=== PATIENT | male | born 1930 | race Caucasian/White ===

== ENCOUNTER → 2016-07-26 | Outpatient (REF) | payer MEDICARE, BC ==
[~2016-07-26] MED LIST: ASPI1TAB24 PO; B COTAB PO; BACITAB3 PO; CALC25TA PO; CARD120C3 PO; D 101TAB PO; DILT120C50 PO; DOCU10CA PO; FINA5TAB2 PO; FLOM5CAP PO; LIPI20TA PO; LUNE3TAB48 PO; METO25TA74 PO; MILKSUS PO; MIRA3350 PO; MULTTAB63 PO; PROTPAK PO; REST15CA PO; SENO8.6T2 PO; TYLE325T5 PO; WARF4TAB51 PO
[2016-07-26 12:03] LABS: INR 1.78
== END | disposition home or self-care (01) ==
PROVIDERS: ATTEND Nurse Practitioner Family
DX: I48.91 Unspecified atrial fibrillation (principal)

== ENCOUNTER → 2016-08-08 | Outpatient (REF) | payer MEDICARE, BC ==
[2016-08-08 11:31] LABS: INR 2.41
== END ==
PROVIDERS: ATTEND Nurse Practitioner Family
DX: Z51.81 Encounter for therapeutic drug level monitoring (principal); Z79.01 Long term (current) use of anticoagulants

== ENCOUNTER → 2016-08-23 | Outpatient (REF) | payer MEDICARE, BC ==
[2016-08-23 11:16] LABS: INR 2.49
== END ==
PROVIDERS: ATTEND Nurse Practitioner Family
DX: I48.91 Unspecified atrial fibrillation (principal)

== ENCOUNTER → 2016-09-20 | Outpatient (REF) | payer MEDICARE, BC ==
[2016-09-20 10:53] LABS: INR 2.81
== END ==
PROVIDERS: ATTEND Nurse Practitioner Family
DX: I48.91 Unspecified atrial fibrillation (principal)

== ENCOUNTER → 2016-10-04 | Outpatient (REF) | payer MEDICARE, BC ==
[2016-10-04 10:15] LABS: INR 2.36
== END ==
PROVIDERS: ATTEND Nurse Practitioner Family
DX: I48.91 Unspecified atrial fibrillation (principal)

== ENCOUNTER → 2016-10-11 | Outpatient (REF) | payer MEDICARE, BC ==
[2016-10-11 11:01] LABS: INR 2.81
== END ==
PROVIDERS: ATTEND Nurse Practitioner Family
DX: I48.91 Unspecified atrial fibrillation (principal)

== ENCOUNTER → 2016-10-18 | Outpatient (REF) | payer MEDICARE, BC ==
[2016-10-18 10:38] LABS: INR 2.64
== END ==
PROVIDERS: ATTEND Nurse Practitioner Family
DX: I48.91 Unspecified atrial fibrillation (principal); Z51.81 Encounter for therapeutic drug level monitoring; Z79.01 Long term (current) use of anticoagulants

== ENCOUNTER → 2016-10-31 | Outpatient (REF) | payer MEDICARE, BC ==
[2016-10-31 11:12] LABS: INR 2.3
== END ==
PROVIDERS: ATTEND Nurse Practitioner Adult Health
DX: I48.2 Chronic atrial fibrillation (principal)

== ENCOUNTER → 2016-11-14 | Outpatient (REF) | payer MEDICARE, BC ==
[2016-11-14 11:17] LABS: INR 2.4
== END ==
PROVIDERS: ATTEND Nurse Practitioner Family
DX: I48.91 Unspecified atrial fibrillation (principal); Z51.81 Encounter for therapeutic drug level monitoring; Z79.01 Long term (current) use of anticoagulants

== ENCOUNTER → 2016-11-28 | Outpatient (REF) | payer MEDICARE, BC ==
[2016-11-28 11:13] LABS: INR 2.42
== END ==
PROVIDERS: ATTEND Nurse Practitioner Family
DX: I48.91 Unspecified atrial fibrillation (principal)

== ENCOUNTER → 2016-12-25 | Outpatient (REF) | payer MEDICARE, OTHER, BC ==
[~2016-12-25] MED LIST changes: +ASPI-161 PO; -ASPI1TAB24 PO; +BACITAB PO; -BACITAB3 PO; +LUNE3TAB36 PO; -LUNE3TAB48 PO; +METO1TAB32 PO; -METO25TA74 PO; -SENO8.6T2 PO; +SENO8.6T5 PO
== END ==
LOC: M SMT 17:15
PROVIDERS: ATTEND Urology
DX: Z85.51 Personal history of malignant neoplasm of bladder (principal)

== ENCOUNTER → 2016-12-26 | Outpatient (REF) | payer MEDICARE, BC ==
[~2016-12-26] MED LIST changes: -ASPI-161 PO; +ASPI1TAB24 PO; -BACITAB PO; +BACITAB3 PO; -LUNE3TAB36 PO; +LUNE3TAB48 PO; -METO1TAB32 PO; +METO25TA74 PO; +SENO8.6T2 PO; -SENO8.6T5 PO
[2016-12-26 10:45] LABS: INR 2.15
== END ==
PROVIDERS: ATTEND Nurse Practitioner Family
DX: I48.91 Unspecified atrial fibrillation (principal)

== ENCOUNTER → 2017-01-23 | Outpatient (REF) | payer MEDICARE, BC ==
[~2017-01-23] MED LIST changes: +ASPI-161 PO; -ASPI1TAB24 PO; +BACITAB PO; -BACITAB3 PO; +LUNE3TAB36 PO; -LUNE3TAB48 PO; +METO1TAB32 PO; -METO25TA74 PO; -SENO8.6T2 PO; +SENO8.6T5 PO
[2017-01-23 11:54] LABS: INR 2.56
== END ==
PROVIDERS: ATTEND Nurse Practitioner Family
DX: I48.2 Chronic atrial fibrillation (principal)

== ENCOUNTER → 2017-08-29 | Outpatient (REF) | payer MEDICARE, BC ==
[2017-08-29 11:02] LABS: INR 2.93; PROTHROMBIN TIME 31.9 SECONDS (12.4-14.5)
== END ==
DX: I48.91 Unspecified atrial fibrillation (principal)
CPT/HCPCS: 85610

== ENCOUNTER → 2017-09-25 | Outpatient (REF) | payer MEDICARE, BC ==
[2017-09-25 10:10] LABS: INR 2.71; PROTHROMBIN TIME 29.9 SECONDS (12.4-14.5)
== END ==
DX: I48.91 Unspecified atrial fibrillation (principal)
CPT/HCPCS: 85610

== ENCOUNTER 2017-10-13 11:02 | Emergency (ER) | payer MEDICARE, BC, OTHER | END 2017-10-13 12:54 | disposition home or self-care (01) | LOC: M ED 11:02 | DX: M19.042 Primary osteoarthritis, left hand (principal); M54.2 Cervicalgia; M54.14 Radiculopathy, thoracic region; I48.91 Unspecified atrial fibrillation; I10 Essential (primary) hypertension; K57.90 Diverticulosis of intestine, part unspecified, without perforation or abscess without bleeding; Z86.73 Personal history of transient ischemic attack (TIA), and cerebral infarction without residual deficits; Z79.82 Long term (current) use of aspirin; Z79.899 Other long term (current) drug therapy; Z79.01 Long term (current) use of anticoagulants; Z88.0 Allergy status to penicillin; Z88.8 Allergy status to other drugs, medicaments and biological substances | CPT/HCPCS: 99283 ==

== ENCOUNTER → 2017-10-23 | Outpatient (REF) | payer MEDICARE, BC ==
[2017-10-23 10:45] LABS: INR 3.59; PROTHROMBIN TIME 37.6 SECONDS (12.4-14.5)
== END ==
DX: I48.2 Chronic atrial fibrillation (principal)
CPT/HCPCS: 85610

== ENCOUNTER → 2017-10-30 | Outpatient (REF) | payer MEDICARE, BC, OTHER ==
[2017-10-30 09:37] LABS: INR 3.86; PROTHROMBIN TIME 39.9 SECONDS (12.4-14.5)
== END ==
DX: I48.91 Unspecified atrial fibrillation (principal)
CPT/HCPCS: 85610

== ENCOUNTER → 2017-11-06 | Outpatient (REF) | payer MEDICARE, BC, OTHER ==
[2017-11-06 10:43] LABS: HEMOGLOBIN 12.3 g/dl (13.5-17.5); MEAN CORPUSCULAR HEMOGLOBIN 34.8 pg (27.0-33.0); MEAN CORPUSCULAR HGB CONC 33.2 g/dl (32.0-36.5); MEAN CORPUSCULAR VOLUME 104.8 fl (80.0-96.0); PLATELET COUNT, AUTOMATED 196 10^3/uL (150-450); RED BLOOD COUNT 3.53 10^6/uL (4.30-6.10); RED CELL DISTRIBUTION WIDTH 13.2 % (11.5-14.5)
[2017-11-06 10:53] LABS: INR 2.86; PROTHROMBIN TIME 31.3 SECONDS (12.4-14.5)
== END ==
DX: I48.2 Chronic atrial fibrillation (principal)
CPT/HCPCS: 85610

== ENCOUNTER → 2017-12-04 | Outpatient (REF) | payer MEDICARE, BC, OTHER ==
[2017-12-04 09:56] LABS: INR 2.45; PROTHROMBIN TIME 27.6 SECONDS (12.4-14.5)
== END ==
DX: I48.2 Chronic atrial fibrillation (principal); Z79.01 Long term (current) use of anticoagulants
CPT/HCPCS: 85610

== ENCOUNTER → 2018-01-01 | Outpatient (REF) | payer MEDICARE, BC, OTHER ==
[2018-01-01 09:56] LABS: INR 2.03; PROTHROMBIN TIME 23.6 SECONDS (12.4-14.5)
== END ==
DX: I48.2 Chronic atrial fibrillation (principal)
CPT/HCPCS: 85610

== ENCOUNTER → 2018-01-29 | Outpatient (REF) | payer MEDICARE, BC, OTHER ==
[2018-01-29 09:39] LABS: INR 2.09; PROTHROMBIN TIME 23.9 SECONDS (12.1-14.4)
== END ==
DX: I48.2 Chronic atrial fibrillation (principal)
CPT/HCPCS: 85610

== ENCOUNTER → 2018-02-26 | Outpatient (REF) | payer MEDICARE, BC, OTHER ==
[2018-02-26 09:37] LABS: INR 2.46; PROTHROMBIN TIME 27.2 SECONDS (12.1-14.4)
== END ==
DX: Z51.81 Encounter for therapeutic drug level monitoring (principal); Z79.01 Long term (current) use of anticoagulants; I48.2 Chronic atrial fibrillation
CPT/HCPCS: 85610

== ENCOUNTER 2018-02-27 14:06 | Emergency (ER) | payer MEDICARE, BC, OTHER ==
[2018-02-27] MEDS: TETANUS/DIPHTHERIA TOX ADSORB ADULT 0.5ML SYR/VIAL (90714) IM (14:59)
== END 2018-02-27 16:53 | disposition home or self-care (01) ==
LOC: M ED 14:06
DX: S00.81XA Abrasion of other part of head, initial encounter (principal); W19.XXXA Unspecified fall, initial encounter; Y92.129 Unspecified place in nursing home as the place of occurrence of the external cause; Y93.89 Activity, other specified; Y99.9 Unspecified external cause status; I48.91 Unspecified atrial fibrillation; I10 Essential (primary) hypertension; N40.0 Benign prostatic hyperplasia without lower urinary tract symptoms; M47.812 Spondylosis without myelopathy or radiculopathy, cervical region; M47.813 Spondylosis without myelopathy or radiculopathy, cervicothoracic region; Z79.82 Long term (current) use of aspirin; Z79.899 Other long term (current) drug therapy; Z88.0 Allergy status to penicillin; Z88.8 Allergy status to other drugs, medicaments and biological substances
CPT/HCPCS: 90714

== ENCOUNTER → 2018-04-02 | Outpatient (REF) | payer MEDICARE, BC, OTHER ==
[2018-04-02 10:22] LABS: INR 2.61; PROTHROMBIN TIME 28.5 SECONDS (12.1-14.4)
== END ==
DX: Z79.899 Other long term (current) drug therapy (principal); Z79.01 Long term (current) use of anticoagulants
CPT/HCPCS: 85610

== ENCOUNTER → 2018-04-09 | Outpatient (REF) | payer MEDICARE, BC, OTHER ==
[2018-04-09 09:35] LABS: HEMATOCRIT 33.2 % (42.0-52.0); HEMOGLOBIN 10.9 g/dl (13.5-17.5); MEAN CORPUSCULAR HEMOGLOBIN 34.2 pg (27.0-33.0); MEAN CORPUSCULAR HGB CONC 32.8 g/dl (32.0-36.5); MEAN CORPUSCULAR VOLUME 104.1 fl (80.0-96.0); PLATELET COUNT, AUTOMATED 259 10^3/uL (150-450); RED BLOOD COUNT 3.19 10^6/uL (4.30-6.10); RED CELL DISTRIBUTION WIDTH 12.2 % (11.5-14.5); WHITE BLOOD COUNT 5.7 10^3/uL (4.0-10.0)
[2018-04-09 10:01] LABS: ALBUMIN 3.7 GM/DL (3.2-5.2); ALBUMIN/GLOBULIN RATIO 1.28 (1.00-1.93); ALKALINE PHOSPHATASE 44 U/L (45-117); ALT/SGPT 21 U/L (12-78); ANION GAP 6 MEQ/L (8-16); AST/SGOT 25 U/L (7-37); BILIRUBIN,TOTAL 0.6 MG/DL (0.2-1.0); BLOOD UREA NITROGEN 32 MG/DL (7-18); CALCIUM LEVEL 8.8 MG/DL (8.8-10.2); CARBON DIOXIDE LEVEL 29 MEQ/L (21-32); CHLORIDE LEVEL 109 MEQ/L (98-107); CREATININE FOR GFR 1.06 MG/DL (0.70-1.30); GLOMERULAR FILTRATION RATE > 60.0 (>35); GLUCOSE, FASTING 79 MG/DL (70-100); POTASSIUM SERUM 4.3 MEQ/L (3.5-5.1); SODIUM LEVEL 144 MEQ/L (136-145); TOTAL PROTEIN 6.6 GM/DL (6.4-8.2)
== END ==
DX: I10 Essential (primary) hypertension (principal)
CPT/HCPCS: 80053

== ENCOUNTER → 2018-04-30 | Outpatient (REF) | payer MEDICARE, BC, OTHER ==
[2018-04-30 10:09] LABS: INR 2.05; PROTHROMBIN TIME 23.6 SECONDS (12.1-14.4)
== END ==
DX: I48.2 Chronic atrial fibrillation (principal)
CPT/HCPCS: 85610

== ENCOUNTER → 2018-05-09 | Outpatient (REF) | payer MEDICARE, BC, OTHER | LOC: M LAB REF 05-10 12:29 | DX: S81.801A Unspecified open wound, right lower leg, initial encounter (principal); W18.30XA Fall on same level, unspecified, initial encounter; Y92.009 Unspecified place in unspecified non-institutional (private) residence as the place of occurrence of the external cause | CPT/HCPCS: 87186 ==

== ENCOUNTER → 2018-05-28 | Outpatient (REF) | payer MEDICARE, BC, OTHER ==
[2018-05-28 13:46] LABS: INR 2.69; PROTHROMBIN TIME 29.2 SECONDS (12.1-14.4)
== END ==
DX: I48.2 Chronic atrial fibrillation (principal); Z79.01 Long term (current) use of anticoagulants
CPT/HCPCS: 85610

== ENCOUNTER → 2018-06-04 | Outpatient (REF) | payer MEDICARE, BC, OTHER ==
[2018-06-04 11:16] LABS: ALBUMIN 3.7 GM/DL (3.2-5.2); ALBUMIN/GLOBULIN RATIO 1.19 (1.00-1.93); ALKALINE PHOSPHATASE 50 U/L (45-117); ALT/SGPT 30 U/L (12-78); ANION GAP 8 MEQ/L (8-16); AST/SGOT 45 U/L (7-37); BILIRUBIN,TOTAL 0.7 MG/DL (0.2-1.0); BLOOD UREA NITROGEN 43 MG/DL (7-18); CALCIUM LEVEL 8.6 MG/DL (8.8-10.2); CARBON DIOXIDE LEVEL 30 MEQ/L (21-32); CHLORIDE LEVEL 107 MEQ/L (98-107); CREATININE FOR GFR 1.36 MG/DL (0.70-1.30); GLOMERULAR FILTRATION RATE 52.5 (>35); GLUCOSE, FASTING 83 MG/DL (70-100); POTASSIUM SERUM 3.8 MEQ/L (3.5-5.1); SODIUM LEVEL 145 MEQ/L (136-145); TOTAL PROTEIN 6.8 GM/DL (6.4-8.2)
== END ==
DX: R60.9 Edema, unspecified (principal)
CPT/HCPCS: 80053

== ENCOUNTER 2018-06-05 23:52 | Emergency (ER) | payer MEDICARE, BC, OTHER ==
[2018-06-06 01:01] LABS: BASO % 0.5 % (0.0-1.0); EOS # 0.4 10^3/uL (0.0-0.50); EOS % 5.6 % (0.0-3.0); HEMOGLOBIN 10.8 g/dl (13.5-17.5); IMMATURE GRANULOCYTE % 1.3 % (0-3.0); LYMPH # 1.6 10^3/uL (1.5-4.5); LYMPH % 21.2 % (24.0-44.0); MEAN CORPUSCULAR HEMOGLOBIN 34.7 pg (27.0-33.0); MEAN CORPUSCULAR HGB CONC 32.7 g/dl (32.0-36.5); MEAN CORPUSCULAR VOLUME 106.1 fl (80.0-96.0); MONO # 0.9 10^3/uL (0.0-0.8); MONO % 11.3 % (0.0-5.0); NEUTROPHILS # 4.5 10^3/uL (1.8-7.7); NEUTROPHILS % 60.1 % (36.0-66.0); PLATELET COUNT, AUTOMATED 207 10^3/uL (150-450); RED BLOOD COUNT 3.11 10^6/uL (4.30-6.10); RED CELL DISTRIBUTION WIDTH 12.6 % (11.5-14.5); WHITE BLOOD COUNT 7.5 10^3/uL (4.0-10.0)
[2018-06-06 01:09] LABS: INR 1.99; PROTHROMBIN TIME 22.9 SECONDS (12.1-14.4)
[2018-06-06 01:10] LABS: PARTIAL THROMBOPLASTIN TIME 43.8 SECONDS (25.4-37.6)
[2018-06-06 03:03] LABS: ALBUMIN 3.2 GM/DL (3.2-5.2); ALBUMIN/GLOBULIN RATIO 1.23 (1.00-1.93); ALKALINE PHOSPHATASE 44 U/L (45-117); ALT/SGPT 28 U/L (12-78); ANION GAP 8 MEQ/L (8-16); AST/SGOT 39 U/L (7-37); BILIRUBIN,DIRECT 0.2 MG/DL (0.0-0.2); BILIRUBIN,TOTAL 0.5 MG/DL (0.2-1.0); BLOOD UREA NITROGEN 33 MG/DL (7-18); CARBON DIOXIDE LEVEL 27 MEQ/L (21-32); CHLORIDE LEVEL 108 MEQ/L (98-107); CPK CREATINE PHOSPHOKINASE 378 U/L (39-308); CREATININE FOR GFR 1.13 MG/DL (0.70-1.30); FREE T4 1.01 NG/DL (0.76-1.46); GLOMERULAR FILTRATION RATE > 60.0 (>35); GLUCOSE, FASTING 94 MG/DL (70-100); MB/CK RELATIVE INDEX 0.69 (< OR =4); POTASSIUM SERUM 3.8 MEQ/L (3.5-5.1); SODIUM LEVEL 143 MEQ/L (136-145); TOTAL PROTEIN 5.8 GM/DL (6.4-8.2); TROPONIN I < 0.02 NG/ML (< 0.10)
== END 2018-06-06 05:20 | disposition home or self-care (01) ==
LOC: M ED 23:52
DX: S40.012A Contusion of left shoulder, initial encounter (principal); W19.XXXA Unspecified fall, initial encounter; Y92.129 Unspecified place in nursing home as the place of occurrence of the external cause; Y93.9 Activity, unspecified; Y99.9 Unspecified external cause status; I48.91 Unspecified atrial fibrillation; R94.31 Abnormal electrocardiogram [ECG] [EKG]; I10 Essential (primary) hypertension; F03.90 Unspecified dementia, unspecified severity, without behavioral disturbance, psychotic disturbance, mood disturbance, and anxiety; E55.9 Vitamin D deficiency, unspecified; N40.3 Nodular prostate with lower urinary tract symptoms; M19.012 Primary osteoarthritis, left shoulder; Z79.82 Long term (current) use of aspirin; Z79.01 Long term (current) use of anticoagulants; Z79.899 Other long term (current) drug therapy; Z88.0 Allergy status to penicillin; Z88.8 Allergy status to other drugs, medicaments and biological substances
CPT/HCPCS: 73030

== ENCOUNTER → 2018-06-14 | Outpatient (REF) | payer MEDICARE, BC, OTHER ==
[2018-06-14 20:32] LABS: APPEARANCE, URINE CLEAR (CLEAR); BACTERIA, URINE AUTO NEGATIVE (NEGATIVE); BILIRUBIN, URINE AUTO NEGATIVE (NEGATIVE); BLOOD, URINE BLOOD NEGATIVE (NEGATIVE); COLOR, URINE YELLOW (YELLOW); GLUCOSE, URINE (UA) AUTO NEGATIVE (NEGATIVE); KETONE, URINE AUTO NEGATIVE (NEGATIVE); LEUKOCYTE ESTERASE, URINE AUTO NEGATIVE (NEGATIVE); MUCUS, URINE SMALL (NEGATIVE); NITRITE, URINE AUTO NEGATIVE (NEGATIVE); PROTEIN, URINE AUTO NEGATIVE (NEGATIVE); RBC, URINE AUTO 0 /HPF (0-3); SQUAMOUS EPITHELIAL CELL UR AU 0 /HPF (0-6); UROBILINOGEN, URINE AUTO 0.2 mg/dL (0.0-2.0); WBC, URINE AUTO 0 /HPF (0-3)
== END ==
DX: R41.82 Altered mental status, unspecified (principal)
CPT/HCPCS: 81001

== ENCOUNTER → 2018-06-25 | Outpatient (REF) | payer MEDICARE, BC, OTHER ==
[~2018-06-25] MED LIST changes: +ALL10TAB27 PO; +BENA25CA4 PO; +FLOM0.4C39 PO; -FLOM5CAP PO; +FLUO25CR; +FURO80TA2; +MILK12002 PO; -MILKSUS PO; +TRIA1CR80; +TYLE650T35 PO
[2018-06-25 10:25] LABS: INR 1.93; PROTHROMBIN TIME 22.4 SECONDS (12.1-14.4)
== END ==
PROVIDERS: ATTEND Nurse Practitioner Family
DX: I48.2 Chronic atrial fibrillation (principal)

== ENCOUNTER → 2018-06-26 | Outpatient (REF) | payer MEDICARE, OTHER ==
[2018-06-26 13:14] LABS: APPEARANCE, URINE CLEAR (CLEAR); BACTERIA, URINE AUTO NEGATIVE (NEGATIVE); BILIRUBIN, URINE AUTO NEGATIVE (NEGATIVE); BLOOD, URINE BLOOD NEGATIVE (NEGATIVE); COLOR, URINE YELLOW (YELLOW); GLUCOSE, URINE (UA) AUTO NEGATIVE (NEGATIVE); KETONE, URINE AUTO NEGATIVE (NEGATIVE); LEUKOCYTE ESTERASE, URINE AUTO NEGATIVE (NEGATIVE); MUCUS, URINE SMALL (NEGATIVE); NITRITE, URINE AUTO NEGATIVE (NEGATIVE); PROTEIN, URINE AUTO NEGATIVE (NEGATIVE); RBC, URINE AUTO 1 /HPF (0-3); SPECIFIC GRAVITY URINE AUTO 1.014 (1.002-1.035); SQUAMOUS EPITHELIAL CELL UR AU 0 /HPF (0-6); UROBILINOGEN, URINE AUTO 0.2 mg/dL (0.0-2.0); WBC, URINE AUTO 0 /HPF (0-3)
== END ==
DX: R41.82 Altered mental status, unspecified (principal)
CPT/HCPCS: 81001

== ENCOUNTER → 2018-07-10 | Outpatient (REF) | payer MEDICARE, OTHER ==
[2018-07-10 10:08] LABS: INR 3.11; PROTHROMBIN TIME 32.7 SECONDS (12.1-14.4)
== END ==
PROVIDERS: ATTEND Nurse Practitioner Family
DX: I48.2 Chronic atrial fibrillation (principal)

== ENCOUNTER → 2018-07-23 | Outpatient (REF) | payer MEDICARE, OTHER ==
[~2018-07-23] MED LIST changes: -ALL10TAB27 PO; +ALL10TAB28 PO; +MILK120011 PO; -MILK12002 PO
[2018-07-23 10:11] LABS: PROTHROMBIN TIME 53.2 SECONDS (12.1-14.4)
[2018-07-23 10:34] LABS: INR 5.74
== END ==
PROVIDERS: ATTEND Nurse Practitioner Family
DX: I48.91 Unspecified atrial fibrillation (principal)

== ENCOUNTER → 2018-08-28 | Outpatient (CLI) | payer MEDICARE, OTHER ==
[2018-08-28 18:41] LABS: PROTHROMBIN TIME 61.7 SECONDS (12.1-14.4)
[2018-08-28 20:24] LABS: INR 6.91
== END ==
LOC: M SMT 14:39
PROVIDERS: ATTEND Nurse Practitioner Adult Health
DX: I48.2 Chronic atrial fibrillation (principal)

== ENCOUNTER → 2018-08-30 | Outpatient (REF) | payer MEDICARE, OTHER ==
[2018-08-30 13:08] LABS: INR 4.79; PROTHROMBIN TIME 46.1 SECONDS (12.1-14.4)
== END ==
LOC: M LABDRAW1 11:55
PROVIDERS: ATTEND Nurse Practitioner Adult Health
DX: I48.2 Chronic atrial fibrillation (principal); Z79.01 Long term (current) use of anticoagulants

== ENCOUNTER → 2018-09-02 | Outpatient (CLI) | payer MEDICARE, BC, OTHER ==
[2018-09-02 17:48] LABS: INR 3.49; PROTHROMBIN TIME 35.9 SECONDS (12.1-14.4)
== END ==
LOC: M SMT 13:23
PROVIDERS: ATTEND Nurse Practitioner Adult Health
DX: I48.2 Chronic atrial fibrillation (principal)

== ENCOUNTER → 2018-09-05 | Outpatient (CLI) | payer MEDICARE, BC, OTHER ==
[2018-09-05 14:02] LABS: INR 4.11; PROTHROMBIN TIME 40.8 SECONDS (12.1-14.4)
== END ==
LOC: M SMT 10:57
PROVIDERS: ATTEND Nurse Practitioner Adult Health
DX: I48.2 Chronic atrial fibrillation (principal)

== ENCOUNTER → 2018-09-09 | Outpatient (CLI) | payer MEDICARE, BC, OTHER ==
[2018-09-09 13:21] LABS: INR 1.66; PROTHROMBIN TIME 19.9 SECONDS (12.1-14.4)
== END ==
LOC: M SMT 10:07
PROVIDERS: ATTEND Nurse Practitioner Adult Health
DX: I48.91 Unspecified atrial fibrillation (principal)

== ENCOUNTER → 2018-10-10 | Outpatient (REF) | payer MEDICARE, BC, OTHER ==
[2018-10-10 16:31] LABS: APPEARANCE, URINE CLEAR (CLEAR); BACTERIA, URINE AUTO NEGATIVE (NEGATIVE); BILIRUBIN, URINE AUTO NEGATIVE (NEGATIVE); BLOOD, URINE BLOOD NEGATIVE (NEGATIVE); COLOR, URINE AMBER (YELLOW); GLUCOSE, URINE (UA) AUTO 1+ mg/dL (NEGATIVE); KETONE, URINE AUTO NEGATIVE (NEGATIVE); LEUKOCYTE ESTERASE, URINE AUTO NEGATIVE (NEGATIVE); MUCUS, URINE SMALL (NEGATIVE); NITRITE, URINE AUTO NEGATIVE (NEGATIVE); PROTEIN, URINE AUTO NEGATIVE (NEGATIVE); RBC, URINE AUTO 1 /HPF (0-3); SPECIFIC GRAVITY URINE AUTO 1.027 (1.002-1.035); SQUAMOUS EPITHELIAL CELL UR AU 0 /HPF (0-6); UROBILINOGEN, URINE AUTO 0.2 mg/dL (0.0-2.0); WBC, URINE AUTO 0 /HPF (0-3)
== END ==
PROVIDERS: ATTEND Nurse Practitioner Adult Health
DX: R30.0 Dysuria (principal)

== ENCOUNTER 2018-11-04 17:54 | Emergency (ER) | payer MEDICARE, BC, OTHER ==
[~2018-11-04] VITALS: Ht 170.2 cm; Wt 73.6 kg
[~2018-11-04 17:54] MED LIST changes: -D 101TAB PO; +FLUO0.024; -FLUO25CR; +VITA-144 PO
[2018-11-04] MEDS ORDERED: CENT2OIN TOP (18:16)
[2018-11-04] MEDS ORDERED: MINO100T PO (18:16)
[2018-11-04] MEDS ORDERED: MIRA3350 PO (18:16)
[2018-11-04] MEDS ORDERED: PROAAER10 INH (18:16)
[2018-11-04] MEDS ORDERED: HIBI4LIQ TOP (18:16)
[2018-11-04] MEDS ORDERED: XARE20TA PO (18:16)
[2018-11-04] MEDS ORDERED: CHLO25TA PO (18:16)
[2018-11-04] MEDS ORDERED: BACTROBAN (18:16)
[2018-11-04] MEDS ORDERED: EUCE1CRE2 TOP (18:21)
[2018-11-04] MEDS ORDERED: APAP325T4 PO (18:21)
[2018-11-04] MEDS ORDERED: COLA100C5 PO (18:21)
[2018-11-04] MEDS ORDERED: MULTCAP PO (18:21)
[2018-11-04] MEDS ORDERED: QC A650T3 PO (18:21)
[2018-11-04 18:45] LABS: BASO % 0.4 % (0.0-1.0); EOS % 0.4 % (0.0-3.0); HEMOGLOBIN 11.6 g/dl (13.5-17.5); LYMPH # 1.3 10^3/uL (1.5-4.5); MEAN CORPUSCULAR HGB CONC 34.1 g/dl (32.0-36.5); MEAN CORPUSCULAR VOLUME 105.6 fl (80.0-96.0); MONO # 0.8 10^3/uL (0.0-0.8); MONO % 16.4 % (0.0-5.0); NEUTROPHILS # 2.8 10^3/uL (1.8-7.7); NEUTROPHILS % 56.2 % (36.0-66.0); PLATELET COUNT, AUTOMATED 235 10^3/uL (150-450); RED BLOOD COUNT 3.22 10^6/uL (4.30-6.10); WHITE BLOOD COUNT 4.9 10^3/uL (4.0-10.0)
[2018-11-04 19:22] LABS: ALBUMIN 3.6 GM/DL (3.2-5.2); ALT/SGPT 19 U/L (12-78); BILIRUBIN,DIRECT 0.2 MG/DL (0.0-0.2); BILIRUBIN,TOTAL 0.5 MG/DL (0.2-1.0); BLOOD UREA NITROGEN 26 MG/DL (7-18); CALCIUM LEVEL 8.8 MG/DL (8.8-10.2); CARBON DIOXIDE LEVEL 29 MEQ/L (21-32); CHLORIDE LEVEL 102 MEQ/L (98-107); CPK CREATINE PHOSPHOKINASE 119 U/L (39-308); CREATININE FOR GFR 1.09 MG/DL (0.70-1.30); GLOMERULAR FILTRATION RATE > 60.0 (>35); GLUCOSE, FASTING 90 MG/DL (70-100); MB/CK RELATIVE INDEX 2.18 (< OR =4); POTASSIUM SERUM 3.6 MEQ/L (3.5-5.1); SODIUM LEVEL 137 MEQ/L (136-145); TROPONIN I < 0.02 NG/ML (< 0.10)
[2018-11-04 21:31] VITALS: BP 161/88
--- NOTE | 2018-11-05 01:42 | ECGEPIP ---
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
--- NOTE | 2018-11-05 07:02 | REP ---
PORTABLE CHEST: AP portable view of the chest is performed and compared to prior study of 03/20/2015. There is poor ventilation with mild bibasilar fibro atelectatic change. I see no infiltrate. There is cardiomegaly. Mediastinal silhouette is unchanged. IMPRESSION: No evidence of acute infiltrate. Electronically Signed by Max Briones MD 11/06/2018 10:00 A
== END 2018-11-04 22:05 | disposition home or self-care (01) ==
LOC: M ED 17:54
DX: R41.82 Altered mental status, unspecified (principal); F03.90 Unspecified dementia, unspecified severity, without behavioral disturbance, psychotic disturbance, mood disturbance, and anxiety; I10 Essential (primary) hypertension; I48.91 Unspecified atrial fibrillation; N40.0 Benign prostatic hyperplasia without lower urinary tract symptoms; E78.5 Hyperlipidemia, unspecified; Z85.51 Personal history of malignant neoplasm of bladder; Z86.73 Personal history of transient ischemic attack (TIA), and cerebral infarction without residual deficits; Z88.8 Allergy status to other drugs, medicaments and biological substances; Z88.0 Allergy status to penicillin; Z79.899 Other long term (current) drug therapy; Z79.82 Long term (current) use of aspirin; Z79.01 Long term (current) use of anticoagulants

== ENCOUNTER → 2019-01-25 | Outpatient (REF) | payer MEDICARE, OTHER, BC ==
[2018-03-26 09:48] LABS: INR 3.25; PROTHROMBIN TIME 33.9 SECONDS (12.1-14.4)
[~2019-01-25] MED LIST changes: +APAP325T4 PO; +BACTROBAN; +CENT2OIN TOP; +CHLO25TA PO; +COLA100C5 PO; +EUCE1CRE2 TOP; +HIBI4LIQ TOP; +MINO100T PO; +MULTCAP PO; +PROAAER10 INH; +QC A650T3 PO; +XARE20TA PO
== END ==
PROVIDERS: ATTEND Internal Medicine
DX: I48.91 Unspecified atrial fibrillation (principal)

== ENCOUNTER → 2019-02-05 | Outpatient (REF) | payer MEDICARE, OTHER | LOC: M LAB REF 12:12 | PROVIDERS: ATTEND Nurse Practitioner Adult Health | DX: D64.9 Anemia, unspecified (principal) ==